=== PATIENT | female | born 1965 | race Caucasian/White ===

== ENCOUNTER 2017-07-23 21:45 | Inpatient (IN) | payer OTHER ==
[~2017-07-23] VITALS: Ht 162.6 cm; Wt 84.9 kg
[2017-07-24 11:33] VITALS: BP 165/76
[2017-07-24 11:51] LABS: HEMATOCRIT 45.2 % (36.0-46.0); HEMOGLOBIN 14.6 G/DL (11.9-15.5); MCH 27.9 PG (29.0-34.0); MCHC 32.3 G/DL (30.0-36.0); MCV 86.4 FL (83-99); RBC DIS.WIDTH-CV 13.2 % (11.8-14.6); RBC DIS.WIDTH-SD 41.1 % (39-53); RED BLOOD COUNT 5.23 M/uL (3.80-5.20); WHITE BLOOD COUNT 11.8 K/uL (4.1-10.2)
[2017-07-24 12:19] LABS: PLAT.SUFFICIENCY INCREASED; PLATELET COUNT 387 K/uL (156-360)
[2017-07-24 12:47] LABS: CHLORIDE 107 MEQ/L (99-109); GFR ESTIMATE (CALCULATED) > 59 mL/min/; GLUCOSE 100 mg/dL (70-99); POTASSIUM 4.9 MEQ/L (3.7-5.4); SODIUM 140 MEQ/L (136-147); UREA NITROGEN (BUN) 12 mg/dL (9-23)
[2017-07-24 19:09] VITALS: BP 167/74
[2017-07-24 21:06] LABS: HEMATOCRIT 42.8 % (36.0-46.0); HEMOGLOBIN 14.1 G/DL (11.9-15.5); MCH 28.4 PG (29.0-34.0); MCHC 32.9 G/DL (30.0-36.0); MCV 86.3 FL (83-99); RBC DIS.WIDTH-CV 13.2 % (11.8-14.6); RBC DIS.WIDTH-SD 41.1 % (39-53); RED BLOOD COUNT 4.96 M/uL (3.80-5.20); WHITE BLOOD COUNT 13.3 K/uL (4.1-10.2)
[2017-07-24 21:30] LABS: CHLORIDE 105 MEQ/L (99-109); GFR ESTIMATE (CALCULATED) > 59 mL/min/; POTASSIUM 4.4 MEQ/L (3.7-5.4); SODIUM 137 MEQ/L (136-147); UREA NITROGEN (BUN) 12 mg/dL (9-23)
[2017-07-24 21:31] LABS: GLUCOSE 182 mg/dL (70-99)
[2017-07-24 21:33] LABS: PLAT.SUFFICIENCY ADEQUATE; PLATELET COUNT 333 K/uL (156-360)
[2017-07-25 00:06] VITALS: BP 137/69
[2017-07-25 03:40] VITALS: BP 117/58
[2017-07-25 05:56] LABS: HEMATOCRIT 42.4 % (36.0-46.0); HEMOGLOBIN 13.6 G/DL (11.9-15.5); MCHC 32.1 G/DL (30.0-36.0); MCV 87.2 FL (83-99); PLATELET COUNT 360 K/uL (156-360); RBC DIS.WIDTH-CV 13.1 % (11.8-14.6); RBC DIS.WIDTH-SD 41.6 % (39-53); RED BLOOD COUNT 4.86 M/uL (3.80-5.20); WHITE BLOOD COUNT 17.8 K/uL (4.1-10.2)
[2017-07-25 06:10] LABS: CHLORIDE 107 MEQ/L (99-109); GFR ESTIMATE (CALCULATED) > 59 mL/min/; GLUCOSE 150 mg/dL (70-99); POTASSIUM 5.1 MEQ/L (3.7-5.4); SODIUM 137 MEQ/L (136-147); UREA NITROGEN (BUN) 10 mg/dL (9-23)
[2017-07-25 07:20] VITALS: BP 129/91
[2017-07-25 11:23] VITALS: BP 138/76
[2017-07-25 15:36] VITALS: BP 169/71
[2017-07-25 19:48] VITALS: BP 153/73
[2017-07-26 00:02] VITALS: BP 150/70
[2017-07-26 03:37] VITALS: BP 149/72
[2017-07-26 06:18] LABS: HEMATOCRIT 41.3 % (36.0-46.0); HEMOGLOBIN 13.5 G/DL (11.9-15.5); MCH 28.5 PG (29.0-34.0); MCHC 32.7 G/DL (30.0-36.0); MCV 87.3 FL (83-99); PLATELET COUNT 308 K/uL (156-360); RBC DIS.WIDTH-CV 13.2 % (11.8-14.6); RBC DIS.WIDTH-SD 42.6 % (39-53); RED BLOOD COUNT 4.73 M/uL (3.80-5.20); WHITE BLOOD COUNT 14.9 K/uL (4.1-10.2)
[2017-07-26 06:48] LABS: CHLORIDE 104 MEQ/L (99-109); CREATININE 0.8 MG/DL (0.6-1.3); GFR ESTIMATE (CALCULATED) > 59 mL/min/; POTASSIUM 4.5 MEQ/L (3.7-5.4); SODIUM 138 MEQ/L (136-147); UREA NITROGEN (BUN) 9 mg/dL (9-23)
[2017-07-26 06:52] LABS: GLUCOSE 106 mg/dL (70-99)
[2017-07-26 07:53] VITALS: BP 144/63
[2017-07-26] MEDS ORDERED: ROXICODONE5 MG PO (09:43)
== END 2017-07-26 11:30 | disposition home or self-care (01) | DRG 743 ==
LOC: ENRESERV 21:45 → 2SOUTH 07-24 09:41 → 2EAST 07-24 11:09 → 2SOUTH 07-24 11:09 → ENRESERV 07-24 11:30 → 2SOUTH 07-24 14:35 → 2EAST 07-24 19:07
PROVIDERS: Obstetrics & Gynecology Gynecologic Oncology
DX: D27.1 Benign neoplasm of left ovary (principal); Z83.3 Family history of diabetes mellitus; Z80.3 Family history of malignant neoplasm of breast; R35.8 Other polyuria; Z87.891 Personal history of nicotine dependence; E66.9 Obesity, unspecified; Z68.32 Body mass index [BMI] 32.0-32.9, adult
CPT/HCPCS: 36415; 80048; 80048 91; 81025; 85027; 86850; 86900; 86901; 86920; 88305; 88307; C1758; J0131; J0690; J1100; J1170; J1650; J2250; J2405; J2710; J2765; J3010; J7643